=== PATIENT | female | born 1990 | race American Indian/Alaskan Native ===

== ENCOUNTER 2022-03-13 13:14 | Emergency (ER) | payer SELFPAY ==
[2022-03-13 13:40] VITALS: BP 115/77
== END 2022-03-13 23:50 | disposition left against medical advice (07) ==
LOC: ED 13:14
DX: N60.09 Solitary cyst of unspecified breast (principal); Z53.21 Procedure and treatment not carried out due to patient leaving prior to being seen by health care provider

== ENCOUNTER 2022-03-15 15:11 | Emergency (ER) | payer SELFPAY ==
[2022-03-15] MEDS ORDERED: CLINDAMYCIN 150 MG CAP PO ONE (20:51)
[2022-03-15] MEDS ORDERED: ONDANSETRON 4 MG ODT TAB PO ONE (20:51)
[2022-03-15] MEDS ORDERED: SULFAMETHOXAZOLE/TRIMETHOPRIM 800/160MG DS TAB PO ONE (20:51)
[2022-03-15] MEDS ORDERED: oxyCODONE /ACETAMINOPHEN 5-325MG TAB PO ONE (20:51)
[2022-03-15] MEDS ORDERED: KETOROLAC 30 MG/1 ML INJ IM ONE (20:51)
[2022-03-15] MEDS ORDERED: LIDOCAINE (1%) 10 MG/1 ML VIAL 20 ML MDV INFILTRATI ONE (20:51)
--- NOTE | 2022-03-15 22:05 | Emergency Department Report ---
ED General Adult HPI - General Chief complaint: Skin/Abscess/Foreign Body Stated complaint: BOIL ON BREAST Source: patient Mode of arrival: Ambulatory Limitations: No Limitations - History of Present Illness Initial comments: Patient is a 31-year-old -Al[place]ian female with no past medical history who presents to the ED with complaint of acute onset persistent painful swelling mild erythematous maculopapular rash on the right breast for the last 5 days. Patient states that she has not been able to sleep in the last 2 days because of worsening pain. Patient also states that she is unable to wear her bra because of pain on the right breast. Patient denies dizziness, syncope, fever, chills, nausea and vomiting, numbness and tingling or weakness of upper extremities bilaterally, shortness of breath, abdominal pain or traumatic injury. MD Complaint: right breast painful swollen rash -: Sudden, days(s) (5) Location: chest (right breast) Radiation: non-radiation Severity scale (0 -10): 8 Quality: aching, sharp Consistency: constant Improves with: none Worsens with: none Associated Symptoms: denies other symptoms, rash (Swollen, painful mild erythematous maculopapular rash on right breast). denies: confusion, chest pain, cough, diaphoresis, fever/chills, loss of appetite, malaise, seizure, shortness of breath, syncope, weakness Treatments Prior to Arrival: none - Related Data Previous Rx's Medication Instructions Recorded Last Taken Type Acetaminophen/Codeine [Tylenol 1 tab PO Q6H PRN #12 tab 03/15/22 Unknown Rx /Codeine # 3 tab] Clindamycin [Clindamycin CAP] 300 mg PO Q8H #30 cap 03/15/22 Unknown Rx Ibuprofen [Motrin] 800 mg PO Q8HR PRN #30 tablet 03/15/22 Unknown Rx Sulfamethoxazole/Trimethoprim 1 each PO Q12H #20 tab 03/15/22 Unknown Rx [Bactrim DS TAB] Allergies Allergy/AdvReac Type Severity Reaction Status Date / Time No Known Allergies Allergy Verified 03/15/22 20:54 ED Review of Systems ROS: Stated complaint: BOIL ON BREAST Other details as noted in HPI Constitutional: denies: chills, fever Eyes: denies: eye pain, eye discharge, vision change ENT: denies: ear pain, throat pain Respiratory: denies: cough, shortness of breath, wheezing Cardiovascular: denies: chest pain, palpitations Endocrine: no symptoms reported Gastrointestinal: denies: abdominal pain, nausea, diarrhea Genitourinary: denies: urgency, dysuria, discharge Musculoskeletal: denies: back pain, joint swelling, arthralgia Skin: rash (Swollen, painful, mild erythematous rash on right breast), change in color. denies: lesions Neurological: denies: headache, weakness, paresthesias Psychiatric: denies: anxiety, depression Hematological/Lymphatic: denies: easy bleeding, easy bruising ED Past Medical Hx - Past Medical History Previous Medical History?: No - Surgical History Past Surgical History?: No - Medications Home Medications: Home Medications Medication Instructions Recorded Confirmed Last Taken Type Acetaminophen/Codeine [Tylenol 1 tab PO Q6H PRN #12 tab 03/15/22 Unknown Rx /Codeine # 3 tab] Clindamycin [Clindamycin CAP] 300 mg PO Q8H #30 cap 03/15/22 Unknown Rx Ibuprofen [Motrin] 800 mg PO Q8HR PRN #30 tablet 03/15/22 Unknown Rx Sulfamethoxazole/Trimethoprim 1 each PO Q12H #20 tab 03/15/22 Unknown Rx [Bactrim DS TAB] ED Physical Exam - General Limitations: No Limitations General appearance: alert, in no apparent distress - Head Head exam: Present: atraumatic, normocephalic, normal inspection - Eye Eye exam: Present: normal appearance, PERRL, EOMI Pupils: Present: normal accommodation - ENT ENT exam: Present: normal exam, normal orophraynx, mucous membranes moist, TM's normal bilaterally, normal external ear exam - Neck Neck exam: Present: normal inspection, full ROM - Respiratory Respiratory exam: Present: normal lung sounds bilaterally, chest wall tenderness (Palpable right chest tenderness due to a swollen erythematous maculopapular fluctuant rash on right breast). Absent: respiratory distress, wheezes, rales, rhonchi, accessory muscle use - Cardiovascular Cardiovascular Exam: Present: regular rate, normal rhythm, normal heart sounds. Absent: systolic murmur, diastolic murmur, rubs, gallop - GI/Abdominal GI/Abdominal exam: Present: soft, normal bowel sounds. Absent: tenderness, guarding, hyperactive bowel sounds, organomegaly - Extremities Exam Extremities exam: Present: normal inspection, full ROM, normal capillary refill - Back Exam Back exam: Present: normal inspection, full ROM. Absent: tenderness, CVA tenderness (R), CVA tenderness (L), muscle spasm, paraspinal tenderness, vertebral tenderness - Neurological Exam Neurological exam: Present: alert, oriented X3, CN II-XII intact, normal gait, reflexes normal - Psychiatric Psychiatric exam: Present: normal affect, normal mood - Skin Skin exam: Present: warm, dry, intact, normal color, rash (Swollen, tender, fluctuant maculopapular mild erythematous rash on right breast), erythema. Absent: urticaria, vesicles, petechiae, abrasion, ecchymosis ED Course Vital Signs 03/15/22 16:37 Temperature 98.3 F Pulse Rate 70 Respiratory 16 Rate Blood Pressure 147/78 [Left] O2 Sat by Pulse 100 Oximetry - I & D Right Breast Type of Procedure: Simple Site: Right breast Blade Size: 11 I & D Procedure: betadine prep, sterile drapes applied, sterile dressing applied, gauze wick placed Progress: The area was cleaned extensively with normal saline and Betadine solutions and local anesthetic lidocaine 1% solution was used. When anesthesia was fully achieved, the rash was incised and drained with size 11 scalpel blade and copious thick purulent discharge drained from the wound. The wound was extensively debrided with normal saline and flocculation's were broken with hemostat. The wound was then packed with iodoform quarter inch gauze and dressed appropriately with 4 x 4 gauze and Tegaderm. Patient tolerated proc edure well. ED Medical Decision Making - Medical Decision Making This is a 31-year-old -Al[place]ian female with no past medical history who presents to the ED with complaint of acute onset persistent painful swelling mild erythematous maculopapular rash on the right breast for the last 5 days. Patient states that she has not been able to sleep in the last 2 days because of worsening pain. Patient also states that she is unable to wear her bra because of pain on the right breast. In the ED, patient is alert and oriented x3 and is not in any distress. Patient is hemodynamically stable. Patient was treated for pain in the ED and also given initial oral antibiotics in the ED. The area was cleaned extensively with normal saline and Betadine solutions and local anesthetic lidocaine 1% solution was used. When anesthesia was fully achieved, the rash was incised and drained with size 11 scalpel blade and copious thick purulent discharge drained from the wound. The wound was extensively debrided with normal saline and flocculation's were broken with hemostat. The wound was then packed with iodoform quarter inch gauze and dressed appropriately with 4 x 4 gauze and Tegaderm. Patient tolerated procedure well. On reevaluation, patient's pain is well controlled with medication. Patient was therefore discharged home on pain medications and antibiotics and was advised return to the ED in 2 days for wound recheck and packing removal. Patient was otherwise advised to follow-up with her primary care physician in 7 to 10 days for reevaluation or return to the ED immediately if symptoms get worse. - Differential Diagnosis Cellulitis; mastitis; cutaneous abscess; folliculitis Critical care attestation.: If time is entered above; I have spent that time in minutes in the direct care of this critically ill patient, excluding procedure time. ED Disposition Clinical Impression: Cellulitis of right breast, Nonpuerperal abscess of right breast, Acute mastitis of right breast Disposition: 01 HOME / SELF CARE / HOMELESS Is pt being admited?: No Does the pt Need Aspirin: No Condition: Stable Instructions: Skin Abscess, [id number], Cellulitis, Adult, [id number], Mastitis, [id number] Additional Instructions: Take medication with food, drink plenty of fluids, follow-up with your primary care physician in 7 to 10 days for reevaluation. Return to the ED immediately if symptoms get worse. Otherwise return to the ED in 2 days for wound recheck and packing removal. Prescriptions: Sulfamethoxazole/Trimethoprim [Bactrim DS TAB] 1 each PO Q12H #20 tab Clindamycin [Clindamycin CAP] 300 mg PO Q8H #30 cap Ibuprofen [Motrin] 800 mg PO Q8HR PRN #30 tablet PRN Reason: Pain , Severe (7-10) Acetaminophen/Codeine [Tylenol /Codeine # 3 tab] 1 tab PO Q6H PRN #12 tab PRN Reason: Pain , Severe (7-10) Referrals: [facility] [Provider Group] - 7-10 days Time of Disposition: 22:07 Print Language: CITIZEN OF [place]
[2022-03-15 22:52] VITALS: BP 152/84
== END 2022-03-15 23:08 | disposition home or self-care (01) ==
LOC: ED 15:11
DX: N61.0 Mastitis without abscess (principal); N61.1 Abscess of the breast and nipple; Z79.899 Other long term (current) drug therapy
CPT/HCPCS: 10060; 96372; 99282; J1885; J3490; Q0162

== ENCOUNTER 2022-03-17 15:09 | Emergency (ER) | payer SELFPAY ==
--- NOTE | 2022-03-17 15:41 | Emergency Department Report ---
ED Recheck HPI - General Chief Complaint: Wound/Laceration Stated Complaint: GET PACKING OUT OF BREAST Time Seen by Provider: 03/17/22 15:40 Source: patient Mode of arrival: Ambulatory Limitations: No Limitations - History of Present Illness Initial Comments: Patient is a 31-year-old female that comes to the emergency room to have packing removed from her right breast. She was seen here couple days ago for an abscess/cellulitis. She is taking her antibiotics. She is ambulatory and nontoxic on arrival to triage. MD Complaint: wound re-check - Related Data Previous Rx's Medication Instructions Recorded Last Taken Type Acetaminophen/Codeine [Tylenol 1 tab PO Q6H PRN #12 tab 03/15/22 Unknown Rx /Codeine # 3 tab] Clindamycin [Clindamycin CAP] 300 mg PO Q8H #30 cap 03/15/22 Unknown Rx Ibuprofen [Motrin] 800 mg PO Q8HR PRN #30 tablet 03/15/22 Unknown Rx Sulfamethoxazole/Trimethoprim 1 each PO Q12H #20 tab 03/15/22 Unknown Rx [Bactrim DS TAB] Allergies Allergy/AdvReac Type Severity Reaction Status Date / Time No Known Allergies Allergy Verified 03/15/22 20:54 ED Review of Systems ROS: Stated complaint: GET PACKING OUT OF BREAST Other details as noted in HPI Comment: All other systems reviewed and negative ED Past Medical Hx - Past Medical History Previous Medical History?: No - Surgical History Past Surgical History?: No - Family History Family history: no significant - Social History Smoking Status: Never Smoker Substance Use Type: None - Medications Home Medications: Home Medications Medication Instructions Recorded Confirmed Last Taken Type Acetaminophen/Codeine [Tylenol 1 tab PO Q6H PRN #12 tab 03/15/22 Unknown Rx /Codeine # 3 tab] Clindamycin [Clindamycin CAP] 300 mg PO Q8H #30 cap 03/15/22 Unknown Rx Ibuprofen [Motrin] 800 mg PO Q8HR PRN #30 tablet 03/15/22 Unknown Rx Sulfamethoxazole/Trimethoprim 1 each PO Q12H #20 tab 03/15/22 Unknown Rx [Bactrim DS TAB] ED Physical Exam - General Limitations: No Limitations General appearance: alert, in no apparent distress - Head Head exam: Present: atraumatic, normocephalic - Eye Eye exam: Present: normal appearance - ENT ENT exam: Present: mucous membranes moist - Neck Neck exam: Present: normal inspection - Respiratory Respiratory exam: Present: normal lung sounds bilaterally. Absent: respiratory distress - Cardiovascular Cardiovascular Exam: Present: regular rate, normal rhythm. Absent: systolic murmur, diastolic murmur, rubs, gallop - GI/Abdominal GI/Abdominal exam: Present: soft, normal bowel sounds - Extremities Exam Extremities exam: Present: normal inspection - Back Exam Back exam: Present: normal inspection - Neurological Exam Neurological exam: Present: alert, oriented X3 - Psychiatric Psychiatric exam: Present: normal affect, normal mood - Skin Skin exam: Present: warm, dry, intact, normal color. Absent: rash ED Course Vital Signs 03/17/22 15:33 Temperature 97.8 F Pulse Rate 70 Respiratory 16 Rate Blood Pressure 125/72 [Left] O2 Sat by Pulse 99 Oximetry ED Recheck MDM - Core Measures Measure Exclusions: not indicated - Differential Diagnosis Wound Recheck - Medical Decision Making Packing removed without difficulty. Breast is soft and nontender. Patient being discharged home with discharge plan of care including diet, activity medications and follow-up. She verbalizes understanding. Vital Signs 03/17/22 15:33 Temperature 97.8 F Pulse Rate 70 Respiratory 16 Rate Blood Pressure 125/72 [Left] O2 Sat by Pulse 99 Oximetry Critical care attestation.: If time is entered above; I have spent that time in minutes in the direct care of this critically ill patient, excluding procedure time. ED Disposition Clinical Impression: Cellulitis of right breast Disposition: 01 HOME / SELF CARE / HOMELESS Is pt being admited?: No Does the pt Need Aspirin: No Condition: Stable Instructions: Cellulitis, Adult Additional Instructions: Keep the area clean and dry. Epson salts in the bathtub will help with drawing out any remaining discharge. Your dressing now just needs to be clean gauze dressing. Motrin or Tylenol for pain. Continue your antibiotics until gone. Follow-up with PCP next week to make sure this is getting better. I have given you referral below Referrals: ELENI MCCLENDON MD [Primary Care Provider] - 3-5 Days Time of Disposition: 15:43
[2022-03-17 15:53] VITALS: BP 125/72
== END 2022-03-17 15:55 | disposition home or self-care (01) ==
LOC: ED 15:09
DX: N61.0 Mastitis without abscess (principal)
CPT/HCPCS: 99282